=== PATIENT | male | born 1955 | race Native Hawaiian/Other Pacific Islander ===

== ENCOUNTER 2016-12-06 11:07 | Outpatient (CLI) | payer BC | END 2016-12-06 19:22 | disposition home or self-care (01) | LOC: RAD 11:07 | DX: M25.571 Pain in right ankle and joints of right foot (principal) ==

== ENCOUNTER 2018-07-12 10:36 | Outpatient (CLI) | payer BC | END 2018-07-12 23:01 | disposition home or self-care (01) | LOC: RAD 10:36 | DX: M25.571 Pain in right ankle and joints of right foot (principal) ==

== ENCOUNTER 2020-01-10 07:48 | Outpatient (CLI) | payer BC | END 2020-01-10 19:05 | disposition home or self-care (01) | LOC: RAD 07:48 | DX: M79.601 Pain in right arm (principal); M89.8X5 Other specified disorders of bone, thigh ==

== ENCOUNTER 2021-03-06 08:14 | Outpatient (CLI) | payer OTHER | END 2021-03-06 19:56 | disposition home or self-care (01) | LOC: US 08:14 | PROVIDERS: ATTEND Nurse Practitioner Family | DX: N19 Unspecified kidney failure (principal); E11.9 Type 2 diabetes mellitus without complications; I10 Essential (primary) hypertension ==

== ENCOUNTER 2021-04-22 11:21 | Emergency (ER) | payer OTHER ==
[~2021-04-22] VITALS: Ht 160 cm; Wt 92.5 kg
[2021-04-22 12:07] VITALS: BP 114/65; TEMP 98.3
== END 2021-04-22 12:07 | disposition home health service (06) ==
LOC: ED 11:21
DX: R50.9 Fever, unspecified (principal); R11.2 Nausea with vomiting, unspecified; Z20.822 Contact with and (suspected) exposure to COVID-19
CPT/HCPCS: 87635; 99282; U0003

== ENCOUNTER 2021-11-24 10:13 | Outpatient (CLI) | payer OTHER | END 2021-11-24 19:42 | disposition home or self-care (01) | LOC: US 10:13 | PROVIDERS: ATTEND Nurse Practitioner Family | DX: M79.661 Pain in right lower leg (principal) ==